=== PATIENT | female | born 1975 | race African-American/Black ===

== ENCOUNTER 2019-07-20 15:18 | Outpatient (CLI) | payer OTHER | END 2019-07-20 15:20 | disposition short-term general hospital (02) | LOC: AMB 15:18 | DX: M25.511 Pain in right shoulder (principal); V89.2XXA Person injured in unspecified motor-vehicle accident, traffic, initial encounter; Y92.413 State road as the place of occurrence of the external cause | CPT/HCPCS: A0425; A0429 ==

== ENCOUNTER 2019-07-20 15:25 | Emergency (ER) | payer OTHER ==
[~2019-07-20] VITALS: Ht 152.4 cm; Wt 104.3 kg
[2019-07-20 15:26] VITALS: TEMP 98.9
[2019-07-20 18:38] VITALS: BP 125/92
== END 2019-07-20 18:38 | disposition home or self-care (01) ==
LOC: ED 15:25
DX: S43.401A Unspecified sprain of right shoulder joint, initial encounter (principal); S73.102A Unspecified sprain of left hip, initial encounter; S73.101A Unspecified sprain of right hip, initial encounter; V49.9XXA Car occupant (driver) (passenger) injured in unspecified traffic accident, initial encounter
CPT/HCPCS: 99283

== ENCOUNTER 2019-09-07 09:53 | Emergency (ER) | payer OTHER ==
[~2019-09-07] VITALS: Ht 149.9 cm; Wt 97.5 kg
[2019-09-07 10:10] VITALS: TEMP 97.7
[2019-09-07 10:29] LABS: PLATELET COUNT 243 K/uL (152-353)
[2019-09-07 10:40] LABS: POTASSIUM 4.2 mmol/L (3.6-5.2)
[2019-09-07 11:57] VITALS: BP 132/80
== END 2019-09-07 11:57 | disposition home or self-care (01) ==
LOC: ED 09:53
PROVIDERS: Emergency Medicine
DX: E11.9 Type 2 diabetes mellitus without complications (principal)
CPT/HCPCS: 80053; 81002; 82962; 85027; 96360; 99284